=== PATIENT | female | born 1940 | race Caucasian/White ===

== ENCOUNTER 2020-07-25 05:30 | Emergency (ER) | payer MEDICARE, OTHER ==
[~2020-07-25] VITALS: Ht 162.6 cm; Wt 81.6 kg
--- NOTE | 2020-07-25 05:40 | NUR ---
PRESENTED TO THE ER FOR C/O H/A . NO FACIAL DROOP, OR SLURRED SPEECH NOTED. W/ PMH OF MIGRAINE. PT WAS PLACED IN BED 2 ER, ON MONITOR. NOTED W/ SLIGHT RODRIGUEZ BP. WILL CONT TO MONITOR
[2020-07-25] MEDS ORDERED: ONDANSETRON HCL/PF 4 MG/2 ML VIAL ONE (05:41)
[2020-07-25 05:49] LABS: BASOPHILS # (AUTO) 0.1 /CMM (0.0-0.2); BASOPHILS % (AUTO) 1.1 % (0.0-2.0); EOSINOPHILS % (AUTO) 2.8 % (0.0-6.0); HEMATOCRIT 37 % (33-45); HEMOGLOBIN 12.2 g/dL (11.5-14.8); LYMPHOCYTES # (AUTO) 2.4 /CMM (0.8-4.8); LYMPHOCYTES % (AUTO) 33.6 % (20.0-44.0); MEAN CORPUSCULAR HGB CONC 33 g/dl (31.0-36.0); MEAN CORPUSCULAR VOLUME 85 fL (82-100); MONOCYTES # (AUTO) 0.5 /CMM (0.1-1.30); MONOCYTES % (AUTO) 7.4 % (2.0-12.0); NEUTROPHILS # (AUTO) 3.9 /CMM (1.8-8.9); NEUTROPHILS % (AUTO) 55.1 % (43.0-81.0); PLATELET COUNT (AUTO) 357 /CMM (150-450); RED BLOOD CELL COUNT(AUTO) 4.35 MIL/uL (4.0-5.2)
--- NOTE | 2020-07-25 05:49 | NUR ---
MAGGIE (SISTER) CONTACT INFORMATION: [phone]
[2020-07-25] MEDS ORDERED: ONDANSETRON HCL/PF 4 MG/2 ML VIAL IVP ONE (06:00)
--- NOTE | 2020-07-25 06:00 | NUR ---
RAD AT BED SIDE
[2020-07-25 06:05] LABS: ALANINE AMINOTRANSFERASE 15 U/L (12-78); ALBUMIN 3.4 g/dL (3.4-5.0); ALKALINE PHOSPHATASE 88 U/L (46-116); ASPARTATE AMINOTRANSFERASE 15 U/L (15-37); BILIRUBIN,DIRECT 0.1 mg/dL (0.0-0.2); BILIRUBIN,TOTAL 0.3 mg/dL (0.2-1.0); CALCIUM, SERUM 9.1 mg/dL (8.5-10.1); CARBON DIOXIDE 26 mmol/L (21-32); CHLORIDE 102 mmol/L (98-107); GLUCOSE 102 mg/dL (74-106); POTASSIUM 3.5 mmol/L (3.5-5.1); SODIUM SERUM 137 mmol/L (136-145); TOTAL PROTEIN, SERUM 7.3 g/dL (6.4-8.2); UREA NITROGEN, BLOOD 17 mg/dL (7-18)
--- NOTE | 2020-07-25 06:20 | NUR ---
urine collected and sent to lab
[2020-07-25 06:41] LABS: BILIRUBIN,URINE NEGATIVE (NEGATIVE); COLOR,URINE YELLOW (YELLOW); LEUKOCYTE ESTERASE ,URINE NEGATIVE (NEGATIVE); NITRITE, URINE NEGATIVE (NEGATIVE); PH,URINE 7.5 (5.0-8.0); PROTEIN,URINE NEGATIVE (NEGATIVE); UGLUCOSE NEGATIVE (NEGATIVE); UROBILINOGEN,URINE 0.2 EU/dL (0.2)
--- NOTE | 2020-07-25 06:49 | NUR ---
pt refused ct head. aware
--- NOTE | 2020-07-25 06:50 | NUR ---
at bed side talking to the pt
--- NOTE | 2020-07-25 06:53 | NUR ---
pt was taken to ct
--- NOTE | 2020-07-25 06:56 | NUR ---
DR ROMO ON THE PHONE WITH PT'S SISTER
[2020-07-25] MEDS ORDERED: ACETAMINOPHEN 325 MG TABLET PO ONE (07:00)
[2020-07-25] MEDS ORDERED: IV NS 0.9% 1,000 ML IV ONE (07:00)
[2020-07-25] MEDS ORDERED: ACETAMINOPHEN 325 MG TABLET ONE (07:15)
[2020-07-25] MEDS ORDERED: LORAZEPAM INJ 2 MG/ML VIAL IV ONE (08:00)
--- NOTE | 2020-07-25 08:25 | NUR ---
socorro,sister, called at [phone], left message to call back
--- NOTE | 2020-07-25 08:42 | NUR ---
Patient is refusing the medications Dr. Schmidt is offering. She prefers to take her own medications. Patient is awake and alert, still c/o mild headache, but she refused the Tylenol. Sister at bedside, copies of results provided. IV removed. Catheter intact and site benign. Pressure and 4x4 applied to site. No bleeding noted. Patient discharged to home in stable condition. Written and verbal after care instructions given. Patient verbalizes understanding of instruction. Assisted to the car via wheelchair.
[2020-07-25 08:44] VITALS: BP 175/82
== END 2020-07-25 08:45 | disposition home or self-care (01) ==
LOC: ER 05:32
DX: F41.1 Generalized anxiety disorder (principal); R51.9 Headache, unspecified; I45.10 Unspecified right bundle-branch block; I10 Essential (primary) hypertension; E78.5 Hyperlipidemia, unspecified; F32.9 Major depressive disorder, single episode, unspecified; Z96.642 Presence of left artificial hip joint
CPT/HCPCS: 36415; 70450; 71045; 80048; 80076; 80307; 80320; 81003; 84484; 85025; 93005; 96361; 96374; 99285; J2405; J7030; G0480

== ENCOUNTER 2023-01-29 07:09 | Inpatient (IN) | payer MEDICARE, OTHER ==
[~2023-01-29] VITALS: Ht 162.6 cm; Wt 90.3 kg
[2023-01-29] MEDS ORDERED: MORPHINE SULFATE INJ 2 MG/ML DISP.SYRIN IV ONE (07:30)
[2023-01-29] MEDS ORDERED: FAMOTIDINE/PF INJ 20 MG/2 ML VIAL IV ONE ×2 (07:30→07:37)
[2023-01-29] MEDS ORDERED: ONDANSETRON HCL/PF 4 MG/2 ML VIAL IVP ONE (07:30)
[2023-01-29] MEDS ORDERED: ONDANSETRON HCL/PF 4 MG/2 ML VIAL ONE (07:36)
[2023-01-29] MEDS ORDERED: MORPHINE SULFATE INJ 4 MG/ML DISP.SYRIN ONE (07:37)
[2023-01-29 07:41] LABS: BASOPHILS # (AUTO) 0.1 K/uL (0.0-0.2); BASOPHILS % (AUTO) 0.9 % (0.0-2.0); EOSINOPHILS # (AUTO) 0.1 K/uL (0.0-0.7); EOSINOPHILS % (AUTO) 1.3 % (0.0-6.0); HEMATOCRIT 36 % (33-45); LYMPHOCYTES # (AUTO) 1.8 K/uL (0.8-4.8); LYMPHOCYTES % (AUTO) 20.5 % (20.0-44.0); MEAN CORPUSCULAR HEMOGLOBIN 28 PG (26.0-33.0); MEAN CORPUSCULAR HGB CONC 34 g/dl (31.0-36.0); MEAN CORPUSCULAR VOLUME 83 fL (82-100); MONOCYTES # (AUTO) 0.6 K/uL (0.1-1.30); MONOCYTES % (AUTO) 6.5 % (2.0-12.0); NEUTROPHILS # (AUTO) 6.4 K/uL (1.8-8.9); NEUTROPHILS % (AUTO) 70.8 % (43.0-81.0); PLATELET COUNT (AUTO) 331 K/uL (150-450); RED BLOOD CELL COUNT(AUTO) 4.33 MIL/uL (4.0-5.2); RED CELL DISTRIBUTION WIDTH 13.7 % (11.5-15.0)
[2023-01-29 07:53] LABS: CALCIUM, SERUM 10.2 mg/dL (8.5-10.1); CARBON DIOXIDE 25 mmol/L (21-32); CHLORIDE 94 mmol/L (98-107); CREATININE 1.8 mg/dL (0.6-1.3); GLUCOSE 102 mg/dL (74-106); POTASSIUM 3.9 mmol/L (3.5-5.1); SODIUM SERUM 127 mmol/L (136-145); UREA NITROGEN, BLOOD 23 mg/dL (7-18)
[2023-01-29 08:04] LABS: INR 0.95 (0.91-1.10); PARTIAL THROMBOPLASTIN TIME 32.4 SEC (24.3-34.3); PROTHROMBIN TIME 10.1 SECS (9.2-11.1)
[2023-01-29 08:05] LABS: ALANINE AMINOTRANSFERASE 14 U/L (12-78); ALBUMIN 3.7 g/dL (3.4-5.0); ALKALINE PHOSPHATASE 88 U/L (46-116); ASPARTATE AMINOTRANSFERASE 15 U/L (15-37); BILIRUBIN,DIRECT 0.1 mg/dL (0.0-0.2); BILIRUBIN,TOTAL 0.5 mg/dL (0.2-1.0); LIPASE 38 U/L (16-77)
[2023-01-29] MEDS ORDERED: IV NS 0.9% 1,000 ML IV ONE (08:30)
[2023-01-29] MEDS ORDERED: METOCLOPRAMIDE HCL 10 MG/2 ML VIAL IV ONE (08:30)
[2023-01-29] MEDS ORDERED: METOCLOPRAMIDE HCL 10 MG/2 ML VIAL ONE (08:41)
[2023-01-29] MEDS ORDERED: LORAZEPAM INJ 2 MG/ML VIAL ONE (09:21)
[2023-01-29] MEDS ORDERED: LORAZEPAM INJ 2 MG/ML VIAL IV ONE (09:30)
[2023-01-29] MEDS ORDERED: IV D5/0.45 NACL 1,000 ML IV PRN (13:00)
[2023-01-29] MEDS ORDERED: MORPHINE SULFATE INJ 2 MG/ML DISP.SYRIN IV PRN (13:00)
[2023-01-29] MEDS: ONDANSETRON HCL/PF 4 MG/2 ML VIAL IVP PRN (14:43)
[2023-01-29] MEDS ORDERED: ALPRAZOLAM 0.25 MG TABLET PO PRN (15:00)
[2023-01-29] MEDS ORDERED: TRAMADOL HCL 50 MG TABLET PO PRN (15:00)
[2023-01-29] MEDS ORDERED: TRAMADOL HCL 50 MG TABLET PO SCH (16:00)
[2023-01-29] MEDS: MORPHINE SULFATE INJ 2 MG/ML DISP.SYRIN IV SCH ×2 (16:00→20:28)
[2023-01-29] MEDS ORDERED: HYDROCODONE/APAP 5/325MG TABLET PO PRN (16:30)
[2023-01-29 20:00] VITALS: BP 140/76; TEMP 97.9; O2SAT 100
[2023-01-29] MEDS: IV NS 0.9% 1,000 ML IV PRN (20:28)
[2023-01-30] VITALS: BP 148/65; TEMP 97.5; O2SAT 98
[2023-01-30] MEDS: MORPHINE SULFATE INJ 2 MG/ML DISP.SYRIN IV SCH ×4 (01:29→12:50)
[2023-01-30 04:00] VITALS: BP 142/68; TEMP 98.1; O2SAT 98
[2023-01-30] MEDS: IV NS 0.9% 1,000 ML IV PRN (06:41)
[2023-01-30 06:54] LABS: BASOPHILS % (AUTO) 0.7 % (0.0-2.0); EOSINOPHILS # (AUTO) 0.1 K/uL (0.0-0.7); EOSINOPHILS % (AUTO) 1.9 % (0.0-6.0); HEMATOCRIT 35 % (33-45); HEMOGLOBIN 11.3 g/dL (11.5-14.8); LYMPHOCYTES % (AUTO) 27.4 % (20.0-44.0); MEAN CORPUSCULAR HEMOGLOBIN 28 PG (26.0-33.0); MEAN CORPUSCULAR HGB CONC 33 g/dl (31.0-36.0); MEAN CORPUSCULAR VOLUME 84 fL (82-100); MONOCYTES # (AUTO) 0.6 K/uL (0.1-1.30); MONOCYTES % (AUTO) 8.7 % (2.0-12.0); NEUTROPHILS # (AUTO) 4.4 K/uL (1.8-8.9); NEUTROPHILS % (AUTO) 61.3 % (43.0-81.0); PLATELET COUNT (AUTO) 300 K/uL (150-450); RED CELL DISTRIBUTION WIDTH 13.6 % (11.5-15.0); WHITE BLOOD COUNT (AUTO) 7.1 K/uL (4.3-11.0)
[2023-01-30 07:09] LABS: CANCER AG, 15-3 13.8 U/mL (0.0-25.0)
[2023-01-30 07:15] LABS: CALCIUM, SERUM 8.9 mg/dL (8.5-10.1); CARBON DIOXIDE 24 mmol/L (21-32); CHLORIDE 101 mmol/L (98-107); CREATININE 1.4 mg/dL (0.6-1.3); GLUCOSE 83 mg/dL (74-106); SODIUM SERUM 133 mmol/L (136-145); UREA NITROGEN, BLOOD 14 mg/dL (7-18)
[2023-01-30] MEDS ORDERED: ALPR0.5T8 PO (07:57)
[2023-01-30] MEDS ORDERED: LEVO100T PO (07:57)
[2023-01-30] MEDS ORDERED: TRAM50TA2 PO (07:57)
[2023-01-30 08:00] VITALS: BP 143/69; TEMP 97.9; O2SAT 98
[2023-01-30] MEDS: ONDANSETRON HCL/PF 4 MG/2 ML VIAL IVP PRN (08:37)
[2023-01-30] MEDS ORDERED: PANTOPRAZOLE 40 MG VIAL IV SCH (09:00)
[2023-01-30 14:11] VITALS: BP 140/68; TEMP 97.9; O2SAT 98
== END 2023-01-30 14:05 | disposition home or self-care (01) | DRG 640 ==
LOC: ER 07:17 → MEDSG1 13:25 → TELE1 14:16
DX: E86.1 Hypovolemia (principal); N17.0 Acute kidney failure with tubular necrosis; N18.4 Chronic kidney disease, stage 4 (severe); R11.2 Nausea with vomiting, unspecified; E87.1 Hypo-osmolality and hyponatremia; D64.9 Anemia, unspecified; E66.9 Obesity, unspecified; E78.5 Hyperlipidemia, unspecified; K59.00 Constipation, unspecified; M19.90 Unspecified osteoarthritis, unspecified site; M89.8X9 Other specified disorders of bone, unspecified site; I12.9 Hypertensive chronic kidney disease with stage 1 through stage 4 chronic kidney disease, or unspecified chronic kidney disease; Z83.3 Family history of diabetes mellitus; Z85.3 Personal history of malignant neoplasm of breast; Z90.49 Acquired absence of other specified parts of digestive tract; Z90.5 Acquired absence of kidney; Z92.3 Personal history of irradiation; Z85.528 Personal history of other malignant neoplasm of kidney; Z96.642 Presence of left artificial hip joint; R51.9 Headache, unspecified; Z68.34 Body mass index [BMI] 34.0-34.9, adult; F41.1 Generalized anxiety disorder; F32.9 Major depressive disorder, single episode, unspecified; N64.89 Other specified disorders of breast
CPT/HCPCS: 36415; 70450-TC; 71250-TC; 76641-TC; 80048-TC; 80076-TC; 82378; 83615-TC; 83690-TC; 83735-TC; 84100-TC; 84484-TC; 85025-TC; 85730-TC; 86300; A4223; A6253; C9113; G0378; G0480; J2060; J2270; J2405; J2765; J3490; J7030